=== PATIENT | male | born 1965 | race Caucasian/White ===

== ENCOUNTER → 2025-02-19 | Outpatient (CLI) | payer BC ==
[2025-02-19 14:10] LABS: BASO # 0.0 10^3/uL (0.0-0.2); BASO % 0.2 % (0.0-1.0); EOS # 0.1 10^3/uL (0.0-0.5); EOS % 0.5 % (0.0-3.0); LYMPH # 2.3 10^3/uL (1.5-5.0); LYMPH % 24.0 % (24.0-44.0); MONO # 0.6 10^3/uL (0.0-0.8); MONO % 5.8 % (2.0-8.0); NEUTROPHILS # 6.6 10^3/uL (1.5-8.5); NEUTROPHILS % 69.1 % (36.0-66.0); PLATELET COUNT, AUTOMATED 217 10^3/uL (150-450)
[2025-02-19 14:11] LABS: RHEUMATOID FACTOR QUANT < 3.5 IU/ML (<14)
[2025-02-19 14:21] LABS: ALT/SGPT 19 U/L (7.0-40); AST/SGOT 14 U/L (<34); CALCIUM LEVEL 9.2 MG/DL (8.5-10.1); CARBON DIOXIDE LEVEL 24 MMOL/L (20-31); CHLORIDE LEVEL 104 MMOL/L (98-107); CREATININE FOR GFR 0.58 MG/DL (0.70-1.30); GLOMERULAR FILTRATION RATE > 90.0 (>56); POTASSIUM SERUM 4.3 MMOL/L (3.5-5.1); SODIUM LEVEL 141 MMOL/L (136-145); THYROID PEROXIDASE ANTIBODY < 28.0 U/ML (<60.0)
[2025-02-19 14:22] LABS: THYROGLOBULIN ANTIBODY 21.0 U/ML (<60.0)
[2025-02-20 18:34] LABS: CRYOGLOBULINS NEGATIVE (NEGATIVE)
[2025-02-20 18:35] LABS: COLD AGGLUTININS NEGATIVE (NEGATIVE)
[2025-02-22 07:03] LABS: ERYTHROCYTE SEDIMENTATION RATE 1 mm/hr (0-15)
[2025-02-23 12:08] LABS: TRYPTASE 7.7 mcg/L (<11.0)
== END ==
LOC: M WUC 09:30
PROVIDERS: ATTEND Allergy & Immunology Allergy
DX: L50.1 Idiopathic urticaria (principal)